=== PATIENT | female | born 1990 | race African-American/Black ===

== ENCOUNTER 2024-10-30 15:10 | Emergency (ER) | payer OTHER, MEDICAID ==
[~2024-10-30] VITALS: Ht 160 cm; Wt 86.0 kg
[~2024-10-30 15:10] MED LIST: PRENATAL
[2024-10-30 15:23] VITALS: BP 189/104; PULSE 64; RESP 16; TEMP 98.6; O2SAT 100
[2024-10-30] MEDS ORDERED: CYCL10TA21 MT (15:26)
[2024-10-30] MEDS ORDERED: LIDO700A15 TP (15:27)
== END 2024-10-30 15:36 | disposition home or self-care (01) ==
LOC: ER 15:10
DX: M62.830 Muscle spasm of back (principal)
CPT/HCPCS: 99283

== ENCOUNTER 2024-11-03 12:31 | Emergency (ER) | payer MEDICAID ==
[~2024-11-03] VITALS: Ht 157.5 cm; Wt 87.0 kg
[~2024-11-03 12:31] MED LIST changes: +CYCL10TA21 MT; +LIDO700A15 TP
[2024-11-03 12:33] VITALS: O2SAT 100
[2024-11-03 12:42] VITALS: BP 180/85; PULSE 72; RESP 18; TEMP 98.3; O2SAT 99
== END 2024-11-03 13:40 | disposition left against medical advice (07) ==
LOC: ER 12:31
DX: M79.601 Pain in right arm (principal); Z53.21 Procedure and treatment not carried out due to patient leaving prior to being seen by health care provider

== ENCOUNTER 2025-07-10 19:08 | Inpatient (IN) | payer SELFPAY ==
[~2025-07-10] VITALS: Ht 157.5 cm; Wt 94.8 kg
[~2025-07-10 19:08] MED LIST changes: +LIDO-53 TP; -LIDO700A15 TP
[2025-07-10 19:16] VITALS: O2SAT 100
[2025-07-10 20:18] LABS: BASOPHILS % 0.9 % (0.0-2.0); EOSINOPHILS % 0.9 % (0.0-5.0); HEMATOCRIT. 39.2 % (36.0-48.0); HEMOGLOBIN. 12.8 g/dL (12.0-16.0); LYMPHOCYTES % 23.9 % (20.0-50.0); MEAN PLATELET VOLUME 8.1 fl (7.4-10.4); MONOCYTES % 6.4 % (2.0-8.0); NEUTROPHILS % 67.9 % (40.0-76.0); PLATELET 339 x1000/uL (130-400); RED BLOOD CELL COUNT 4.32 mill/uL (4.2-5.4); RED CELL DISTRIBUTION WIDTH 14.8 % (11.6-14.6)
[2025-07-10 20:29] LABS: CREATININE 1.0 mg/dL (0.6-1.0); UREA NITROGEN BLOOD 10 mg/dL (9-23)
[2025-07-10] MEDS: AMLODIPINE 10MG TABLET PO ONE (23:04)
[2025-07-10 23:12] LABS: CLARITY URINE CLEAR (CLEAR); COLOR URINE YELLOW (YELLOW); GLUCOSE URINE NEGATIVE (NEGATIVE); KETONES URINE TRACE (NEGATIVE); LEUKOCYTE ESTERASE URINE NEGATIVE (NEGATIVE); NITRITE URINE NEGATIVE (NEGATIVE); OCCULT BLOOD URINE 2+ (NEGATIVE); PH URINE 6.5 (4.5-8.0); PROTEIN URINE TRACE (NEGATIVE); SPECIFIC GRAVITY URINE 1.026 (1.005-1.030); UROBILINOGEN URINE 1.0 E.U./dL (0.2-1.0)
[2025-07-10 23:21] LABS: SQUAMOUS EPITHELIAL CELL URINE 2+ /lpf (RARE/1+); WBC URINE 0-2 /hpf (0-2)
[2025-07-10 23:22] LABS: BACTERIA URINE TRACE; MUCUS URINE 2+ /lpf (< = 2+); RBC URINE 0-2 /hpf (0-2)
[2025-07-11 00:03] LABS: HCG SCREEN NEGATIVE; TROPONIN I HIGH SENSITIVITY < 4 ng/L (3.0-34)
[2025-07-11] MEDS: HYDRALAZINE 20MG/ML VIAL IV ONE (02:18)
[2025-07-11 05:30] VITALS: BP 151/100; PULSE 63; RESP 20; TEMP 36.6; O2SAT 100
[2025-07-11 08:00] VITALS: BP_SYST 155; BP_SYST 156; BP_DIAS 79; BP_DIAS 87; PULSE 70; PULSE 75; RESP 20; TEMP 36.6; TEMP 36.696; O2SAT 100
[2025-07-11] MEDS ORDERED: NITROGLYCERIN 0.4MG TABLET SL SL PRN (08:00)
[2025-07-11] MEDS ORDERED: CLONIDINE 0.1MG TABLET PO PRN (08:00)
[2025-07-11] MEDS ORDERED: ACETAMINOPHEN 325MG TABLET PO PRN (08:00)
[2025-07-11] MEDS ORDERED: ONDANSETRON HCL 4MG/2ML INJ IV PRN (08:00)
[2025-07-11] MEDS ORDERED: IPRATROPIUM/ALBUTEROL 0.5-3(2.5)MG/3ML NEB HHN PRN (08:00)
[2025-07-11] MEDS ORDERED: HYDRALAZINE 20MG/ML VIAL IV PRN (08:00)
[2025-07-11] MEDS: AMLODIPINE 5MG TABLET PO SCH (09:03)
[2025-07-11 09:05] LABS: *AMPHETAMINES SCREEN URINE NEGATIVE (NEGATIVE); *BARBITURATES SCREEN URINE NEGATIVE (NEGATIVE); *BENZODIAZEPINES SCREEN URINE NEGATIVE (NEGATIVE); *COCAINE SCREEN URINE NEGATIVE (NEGATIVE); METHADONE URINE SCREEN NEGATIVE (NEGATIVE)
[2025-07-11 09:06] LABS: CANNABINOID URINE SCREEN NEGATIVE (NEGATIVE); ECSTASY MDMA SCREEN URINE NEGATIVE (NEGATIVE); OPIATES URINE SCREEN PRESUMPTIVE POSITIVE (NEGATIVE); PHENCYCLIDINE URINE SCREEN NEGATIVE (NEGATIVE)
[2025-07-11] MEDS: POTASSIUM CHLORIDE 20MEQ/PACKET PO NR ×2 (09:07→12:45)
[2025-07-11 09:27] VITALS: BP 156/87; PULSE 70
[2025-07-11] MEDS: PANTOPRAZOLE SODIUM 40 MG/VIAL IV SCH (09:27)
[2025-07-11] MEDS: SODIUM CHLORIDE 0.9% 500 ML IV ONE (09:30)
[2025-07-11] MEDS: ENOXAPARIN 30MG/0.3ML SYR SUBCUT SCH (09:43)
[2025-07-11 12:00] VITALS: BP 150/96; PULSE 71; RESP 20; TEMP 36.2; O2SAT 100
[2025-07-11 16:00] VITALS: BP 129/78; PULSE 85; RESP 20; TEMP 36.7; O2SAT 100
[2025-07-11] MEDS: ACETAMINOPHEN 325MG TABLET PO PRN (16:51)
[2025-07-11 17:27] LABS: PHOSPHORUS 2.4 mg/dL (2.5-4.9)
[2025-07-11 17:28] LABS: TROPONIN I HIGH SENSITIVITY < 4 ng/L (3.0-34)
[2025-07-11 20:00] VITALS: BP 122/80; PULSE 78; RESP 18; TEMP 36.2; O2SAT 99
[2025-07-11] MEDS ORDERED: IOHEXOL-350 100 ML BOTTLE ONE (22:48)
[2025-07-12] VITALS (7 sets, daily range): BP systolic 122–140; BP diastolic 65–83; PULSE 70–87; RESP 18; TEMP 36.1–36.7; O2SAT 97–100
[2025-07-12] MEDS ORDERED: METOPROLOL TARTRATE 5MG/5ML VIAL IV PRN (07:45)
[2025-07-12] MEDS: LOSARTAN 25 MG TABLET PO SCH (09:09)
[2025-07-12] MEDS: AMLODIPINE 10MG TABLET PO SCH (09:09)
[2025-07-12] MEDS: POTASSIUM CHLORIDE 20MEQ TABLET SR PO SCH (09:09)
[2025-07-12] MEDS ORDERED: POTASSIUM PHOSPHATE 15 MMOL in DEXT 5% WATER 245 ML IV NR (11:00)
[2025-07-12] MEDS ORDERED: AMLO10TA80 PO (16:47)
[2025-07-12] MEDS ORDERED: LOSA25TA26 PO (16:47)
[2025-07-12] MEDS: POTASSIUM-SODIUM PHOSPHATE POWDER PACKET PO SCH (16:51)
[2025-07-13] VITALS: BP 113/62; PULSE 72; RESP 19; TEMP 36.4; O2SAT 99
[2025-07-13 04:00] VITALS: BP 106/57; PULSE 71; RESP 17; TEMP 36.6; O2SAT 99
[2025-07-13 08:00] VITALS: BP 126/80; PULSE 83; RESP 18; TEMP 36.7; O2SAT 99
[2025-07-13] MEDS: ASPIRIN 81MG TABLET PO SCH (08:36)
[2025-07-13] MEDS ORDERED: LIDOCAINE HCL 1% 10 MG/ML 10ML VIAL ONE (08:46)
[2025-07-13] MEDS ORDERED: IOHEXOL-350 100 ML BOTTLE ONE ×2 (10:26→11:27)
[2025-07-13] MEDS: NITROGLYCERIN SPRAY/4.9GM CAN TL ONE (10:30)
[2025-07-13] MEDS ORDERED: NITROGLYCERIN SPRAY/4.9GM CAN TL SCH (11:00)
[2025-07-13 13:14] VITALS: BP 126/80; PULSE 83; RESP 18; TEMP 98.1
== END 2025-07-13 13:46 | disposition home or self-care (01) | DRG 199 ==
LOC: ER 19:08 → 8WST 07-11 01:50 → EDBEDREQDT 07-11 02:08 → EDBEDREQ 07-11 02:08 → EDBEDREQTM 07-11 02:08 → ENRESERV 07-11 05:12
PROVIDERS: ADMIT Hospitalist; ATTEND Hospitalist
PROC: 05HY33Z Insertion of Infusion Device into Upper Vein, Percutaneous Approach (ICD-10-PCS; principal; 2025-07-13)
PROC: B54NZZA Ultrasonography of Left Upper Extremity Veins, Guidance (ICD-10-PCS; 2025-07-13)
DX: I16.1 Hypertensive emergency (principal); E83.39 Other disorders of phosphorus metabolism; E87.6 Hypokalemia; R73.9 Hyperglycemia, unspecified; I10 Essential (primary) hypertension; E26.9 Hyperaldosteronism, unspecified; R73.03 Prediabetes; E66.9 Obesity, unspecified; Z68.38 Body mass index [BMI] 38.0-38.9, adult; Z80.3 Family history of malignant neoplasm of breast
CPT/HCPCS: 36415; 36573; 71045; 71275; 75571; 76770; 80048; 80305; 81003; 82962; 83036; 83735; 84100; 84132; 84443; 84484; 84703; 85025; 85379; 85651; 93005; 93306; 93922; 99285; A4606; C1725; J0360; J1650; J2003; J2470; J3490; J7060; Q9967